=== PATIENT | female | born 1985 | race Caucasian/White ===

== ENCOUNTER 2021-09-26 02:04 | Emergency (ER) | payer BC ==
[2021-09-26 02:32] VITALS: BP 115/78; PULSE 79; RESP 18; TEMP 97.5; BMI 31.0
== END 2021-09-26 03:53 | disposition home or self-care (01) ==
LOC: JER 02:04
DX: R11.10 Vomiting, unspecified (principal); R09.89 Other specified symptoms and signs involving the circulatory and respiratory systems
CPT/HCPCS: 99283-25